=== PATIENT | male | born 2000 | race Two or more races ===

== ENCOUNTER 2024-09-07 21:27 | Emergency (ER) | payer MEDICAID, OTHER ==
[~2024-09-07] VITALS: Ht 175.3 cm; Wt 46.8 kg
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
[2024-09-08] MEDS: LIDOCAINE 1% HCL (LOCAL ANESTH.) INJ 20ML MDV ID ONE (00:21)
[2024-09-08 00:34] VITALS: BP 114/79; PULSE 18; RESP 18; TEMP 98.7; O2SAT 98
[2024-09-08] MEDS ORDERED: AUG875T PO (00:57)
== END 2024-09-08 01:05 | disposition home or self-care (01) ==
LOC: ER 21:27
DX: S01.81XA Laceration without foreign body of other part of head, initial encounter (principal); W22.8XXA Striking against or struck by other objects, initial encounter; Y93.I9 Activity, other involving external motion; Y92.89 Other specified places as the place of occurrence of the external cause; Y99.8 Other external cause status
CPT/HCPCS: 12011; 99283; J2003